=== PATIENT | female | born 1970 | race Caucasian/White ===

== ENCOUNTER 2016-05-26 06:00 | Day surgery (SDC) | payer OTHER ==
[~2016-05-26] VITALS: Ht 175.3 cm; Wt 211.3 kg
[~2016-05-26 06:00] MED LIST: ADVIL200 MG PO; HYDROCHLOROTHIA25 MG PO; HYGROTON25 MG PO; LO-DOSE ASPIRIN81 M2 PO; NAPROXEN500 MG PO
[2016-05-26 07:33] VITALS: BP 179/90
[2016-05-26] MEDS ORDERED: NORCO 5/3251 TABLET PO (12:33)
[2016-05-26 14:17] VITALS: BP 165/79
[2016-05-26 15:11] VITALS: BP 142/72
[2016-05-26 16:13] VITALS: BP 135/71
[2016-05-27 09:50] LABS: INTERNAL CONTROL VALID? YES
== END 2016-05-26 17:18 | disposition home or self-care (01) ==
LOC: SDC → PAIN 10:18 → SDC 10:38
PROVIDERS: Anesthesiology
PROC: 0HBU0ZZ Excision of Left Breast, Open Approach (ICD-10-PCS; principal; 2016-05-26)
DX: R92.0 Mammographic microcalcification found on diagnostic imaging of breast (principal); E66.01 Morbid (severe) obesity due to excess calories; Z68.44 Body mass index [BMI] 60.0-69.9, adult; I10 Essential (primary) hypertension
CPT/HCPCS: 84703; 88307; J0330; J0690; J2250; J2405; J2765; J3010

== ENCOUNTER 2016-08-07 12:56 | Emergency (ER) | payer OTHER ==
[~2016-08-07] VITALS: Ht 172.7 cm; Wt 210.4 kg
[~2016-08-07 12:56] MED LIST changes: +NORCO 5/3251 TABLET PO
[2016-08-07 14:43] LABS: ADD MIUA? NO; BILIRUBIN NEGATIVE; BLOOD NEGATIVE; COLOR YELLOW ((YELLOW)); GLUCOSE (STRIP) NEGATIVE; KETONES NEGATIVE; LEUKOCYTES NEGATIVE; NITRITE NEGATIVE; PROTEIN (STRIP) NEGATIVE; SPECIFIC GRAVITY 1.018 (1.000-1.030); UCUL ADDED? NO; UROBILINOGEN 0.2 MG/DL (0.2-1.0)
[2016-08-07 14:53] LABS: HEMATOCRIT 41.7 % (36.0-46.0); MCH 28.2 PG (29.0-34.0); MCHC 32.9 G/DL (30.0-36.0); MCV 85.8 FL (83-99); MEAN PLAT.VOLUME 9.7 uM^3 (9.5-12.4); PLATELET COUNT 327 K/uL (156-360); RBC DIS.WIDTH-CV 12.9 % (11.8-14.6); RBC DIS.WIDTH-SD 39.9 % (39-53); RED BLOOD COUNT 4.86 M/uL (3.80-5.20); WHITE BLOOD COUNT 7.6 K/uL (4.1-10.2)
[2016-08-07 15:09] LABS: CHLORIDE 104 mEq/L (99-109); POTASSIUM 4.2 mEq/L (3.7-5.4); SODIUM 139 mEq/L (136-147)
[2016-08-07 15:10] LABS: GLUCOSE 135 mg/dL (70-99)
[2016-08-07 15:12] LABS: ANION GAP 8 MEQ/L (2-14)
[2016-08-07 15:14] LABS: GFR ESTIMATE (CALCULATED) > 59 mL/min/
[2016-08-07 15:15] LABS: UREA NITROGEN (BUN) 13 mg/dL (9-23)
[2016-08-07 16:06] LABS: INTERNAL CONTROL VALID? YES
[2016-08-07 18:10] VITALS: BP 159/83
== END 2016-08-07 18:11 | disposition home or self-care (01) ==
LOC: EXP 12:56 → EME 12:56 → EXP 18:11
PROVIDERS: Physician Assistant
DX: R10.32 Left lower quadrant pain (principal); M54.9 Dorsalgia, unspecified; I10 Essential (primary) hypertension; Z72.0 Tobacco use
CPT/HCPCS: 74176; 80048; 81003; 84703; 85027; 99281; 99284; J2270